=== PATIENT | male | born 1975 | race Caucasian/White ===

== ENCOUNTER 2017-06-07 15:52 | Emergency (ER) | payer MEDICAID ==
[2017-06-07] MEDS ORDERED: LORazepam 1 MG TAB PO ONE (16:08)
[2017-06-07] MEDS ORDERED: LORazepam 2 MG/ML INJ IM ONE (16:12)
[2017-06-07] MEDS ORDERED: HALOPERIDOL LACT 5 MG/ML INJ IM ONE (16:13)
[2017-06-07] MEDS ORDERED: OLANZapine DISINTEGR 10 MG TAB ONE (16:14)
--- NOTE | 2017-06-07 16:14 | EDPHY ---
General - History Smoking Status: Current some day smoker Narrative: 0641AM: No acute overnight. Patient was sling. Needs mental evaluation. Was positive for methamphetamine. Underlying schizophrenia. (Trenton Rico) I assumed care of the patient at 0700. The patient remained stable throughout my shift. He was seen by Mental Health who currently is evaluating possible placement options. The patient will be turned over to Dr. Harris at shift change. (Antoine Fan) CHIEF COMPLAINT: M1 hold HISTORY OF PRESENT ILLNESS: Patient arrives by EMS with [place] [employer] as well. [place] [employer] reports that the patient was sitting in the middle of the road with his belongings with him when he flagged the police department down. PD reports that he was agitated, appeared to be hallucinating and admits to amphetamine use. He was exhibiting flight of ideas, pressured speech and incoherent speech at times. They elected to place him on an M1 hold due to what they are assuming are hallucinations. It did require an hour to get him in the ambulance and transferred to the hospital. He denies any complaints of any kind. PSYCHIATRIC DIAGNOSES: Schizophrenia per chart review PRIOR PSYCHIATRIC EVALUATIONS: Unknown M1/DETAINER: [place] [employer] at time of arrival REVIEW OF SYSTEMS: Ten systems reviewed and are negative unless otherwise noted in the HPI EXAMINATION General Appearance: Alert, no distress, unkempt Head: normocephalic, atraumatic Eyes: Pupils equal and round, no conjunctival pallor or injection. Dilated pupils ENT, Mouth: Mucous membranes moist Neck: Normal inspection, supple, non-tender Respiratory: No retractions or distress. Not cooperating auscultation Cardiovascular: Tachycardic rate. Will not cooperate with auscultation Gastrointestinal: Abdomen is nondistended Neurological: Ambulate without difficulty. Will answer my questions regarding person place or time. Skin: Grossly intact. Extremities: Nontender, no pedal edema Psychiatric: Pressured speech and flight of ideas. Unable to carry on a conversation without changing his direction. Denies suicidal ideation. Denies homicidal ideation DIFFERENTIAL DIAGNOSES: Including but not limited to paranoid schizophrenia, schizoaffective, methamphetamine use, polysubstance abuse, acute psychosis MDM: 4:05 p.m. Likely paranoid schizophrenia with methamphetamine use. The patient is difficult to examine as he will not cooperate fully. I have elected to order Ativan and Haldol in attempt to help calm him down. 4:20 p.m. Notified by RN that the patient took the Ativan ordered by mouth without difficulty. Thus far cooperative but we are keeping a close eye on him. Haldol IM canceled. 5:45 p.m. Patient's urine is positive for methamphetamine. Thus he will not be evaluated within the next 12 hr. He has thus far not cooperating with blood draws. Proceed with oral Zyprexa and attempt again. At this time I will check the patient out to Dr. Harris. He will assume care the patient. Please see his note for further details and disposition. SUPERVISION: Patient was independently examined, but I discussed the case with my secondary supervising physician Dr. Harris. ([place]) Discussion: Care was signed out to me at 6:00 p.m. by ELIJAH coronel. At 6:20 p.m. patient becomes very agitated. He is given 2 mg of Ativan IM as well as 10 mg of Haldol IM. He does not have IV access. He has already had Zyprexa when I review his medical record We are able to get an IV in the patient while he was in 4 point restraints. He was given 25 mg of Benadryl IV. At 6:45 p.m. the patient is now sleeping. Patient has remained stable. His care is transferred to Dr. Rico at 11:00 p.m. (Ortega Harris) 2:00 p.m. the patient has been evaluated by Mental Health. They have spoken with patient's mom and reviewed his medical records. The patient has been admitted several times for psychotic type features but always in the setting of substance abuse. He has always been discharged within a few days and his symptoms felt to be primarily due to substance abuse. The patient admits to having taking all of his pill bottle of Adderall prior to coming to the emergency department. He currently does not meet criteria for inpatient admission. They did offer to send him to a rehabilitation center however he declines and does not want to stop using Adderall. He is [facility] to be [facility] to [facility]. (Angelo Mckeon) - Objective Vital Signs: Initial Vital Signs Heart Rate 118 H 06/07/17 16:00 Respiratory Rate 20 06/07/17 16:00 Blood Pressure 155/90 H 06/07/17 16:00 O2 Sat (%) 98 06/07/17 16:00 O2 Delivery Mode Room Air O2 (L/minute) 2 Allergies/Adverse Reactions: No Known Allergies Allergy (Verified 06/07/17 16:07) Home Medications: Medication Instructions Recorded Adderall 10 mg Tablet 11/08/15 Clotrimazole 1% [Lotrimin 1%] 15 gm TP BID #15 gr 11/08/15 Clotrimazole 1% [Lotrimin 1%] 1 landon TP BID #30 cream 12/15/15 Ibuprofen [Motrin (*)] 800 mg PO Q6 #15 tab 12/15/15 Risperidone 1 mg PO HS #10 tablet 03/20/16 Laboratory Results: Laboratory Results 06/07/17 23:59 06/07/17 23:59 Medications Given: Nicotine Polacrilex (Nicorette) 2 mg B PRN PRN PRN Reason: Nicotine Withdrawal Stop: 12/04/17 16:47 Last Admin: 06/07/17 16:59 Dose: 2 mg Discontinued Medications Diphenhydramine HCl (Benadryl Injection) 25 mg IVP EDNOW ONE Stop: 06/07/17 18:37 Last Admin: 06/07/17 18:37 Dose: 25 mg Haloperidol Lactate (Haldol Injection) 5 mg IM EDNOW ONE Stop: 06/07/17 16:14 Last Admin: 06/07/17 18:08 Dose: Not Given Lorazepam (Ativan) 2 mg PO EDNOW ONE Stop: 06/07/17 16:09 Last Admin: 06/07/17 16:30 Dose: 2 mg Lorazepam (Ativan Injection) 2 mg IM EDNOW ONE Stop: 06/07/17 16:13 Last Admin: 06/07/17 18:08 Dose: Not Given Nicotine (Nicoderm Cq) 21 mg TD EDNOW ONE Stop: 06/07/17 16:48 Last Admin: 06/07/17 16:59 Dose: 21 mg Olanzapine (Zyprexa Zydis) 10 mg PO EDNOW ONE Stop: 06/07/17 16:31 Last Admin: 06/07/17 16:25 Dose: 10 mg Olanzapine (Olanzapine) 5 mg PO ONCE ONE Stop: 06/07/17 17:45 Last Admin: 06/07/17 18:04 Dose: Not Given Olanzapine (Zyprexa Zydis) 10 mg PO EDNOW ONE Stop: 06/07/17 17:48 Last Admin: 06/07/17 18:04 Dose: 10 mg Departure - Departure Disposition: Home, Routine, Self-Care Clinical Impression: Polysubstance abuse Condition: Fair Instructions: Polysubstance Abuse (ED) Referrals: NONE *PRIMARY CARE P,. [Primary Care Provider] - As per Instructions [facility],. [Clinic] - As per Instructions
[2017-06-07] MEDS ORDERED: OLANZapine DISINTEGR 10 MG TAB PO ONE ×2 (16:30→17:47)
[2017-06-07] MEDS ORDERED: NICOTINE POLACRILEX 2 MG GUM B ONE (16:46)
[2017-06-07] MEDS ORDERED: NICOTINE 21 MG/24 HR PATCH TD ONE ×2 (16:46→16:47)
[2017-06-07] MEDS ORDERED: NICOTINE POLACRILEX 2 MG GUM B PRN (16:48)
[2017-06-07] MEDS ORDERED: OLANZapine 5 MG TAB PO ONE (17:44)
[2017-06-07] MEDS ORDERED: LORazepam 2 MG/ML INJ ONE (18:13)
[2017-06-07] MEDS ORDERED: HALOPERIDOL LACT 5 MG/ML INJ ONE (18:20)
[2017-06-08 00:10] LABS: % IMMATURE GRANULYOCYTES 0.4 % (0.0-1.1); ABSOLUTE IMMATURE GRANULOCYTES 0.04 10^3/uL (0.00-0.10); ADD DIFF? NO; ADD MORPH? NO; ADD SCAN? NO; ATYPICAL LYMPHOCYTE FLAG 0 (0-99); FRAGMENT RBC FLAG 0 (0-99); HEMATOCRIT 35.6 % (40.0-51.0); HEMOGLOBIN 12.5 g/dL (13.7-17.5); LEFT SHIFT FLG 0 (0-99); LIPEMIA HEMOLYSIS FLAG 90 (0-99); MEAN CELL HEMOGLOBIN 31.3 pg (27.9-34.1); MEAN CELL HEMOGLOBIN CONCENTR. 35.1 g/dL (32.4-36.7); MEAN CELL VOLUME 89.2 fL (81.5-99.8); MEAN PLATELET VOLUME 10.4 fL (8.7-11.7); PLATELET CLUMPS FLAG 10 (0-99); PLATELET COUNT 168 10^3/uL (150-400); RED BLOOD CELL COUNT 3.99 10^6/uL (4.40-6.38); RED CELL DISTRIBUTION WIDTH 12.6 % (11.5-15.2)
[2017-06-08 00:25] LABS: ANION GAP 11 mEq/L (8-16); CALCIUM 8.6 mg/dL (8.5-10.4); CARBON DIOXIDE 24 mEq/l (22-31); CHLORIDE 109 mEq/L (97-110); CREATININE 0.7 mg/dL (0.7-1.3); ETHANOL SERUM < 10 mg/dL (0-10); GLOMERULAR FILTRATION RATE > 60; GLUCOSE 97 mg/dL (70-100); POTASSIUM 4.5 mEq/L (3.5-5.2); SALICYLATE < 1.0 mg/dL (2.0-20.0); SODIUM 144 mEq/L (134-144)
[2017-06-09 08:22] VITALS: TEMP 97.3
[2017-06-09 14:15] VITALS: BP 132/69; PULSE 79; RESP 18; O2SAT 96
--- NOTE | 2017-06-09 16:49 | ASMTCMCOM ---
CM Note CM Note Notes: Patient was evaluated by EPS and his M1 hold was lifted, their discharge plan is to cab him to the [facility] location in order to get set up with the local [facility] and other homeless resource options. This CM offered to assist RN with providing and explaining the CE information and calling the cab. This CM spoke with the patient and he says he agrees with discharge plan and understands the importance of completing CE; information provided. Cab called arranged. CM available for further assistance. Date Signed: 06/09/2017 04:49 PM Electronically Signed By:Malaika Bhakta RN
--- NOTE | 2017-06-09 16:52 | ASDISCHSUM ---
Discharge Information Plan Status:Homeless/Fdc Medically Cleared to Leave: Discharge Date:06/09/2017 02:39 PM CM D/C Disposition:[facility]re[facility] (Homeless) ADT D/C Disposition:Home, Routine, Self-Care Projected Discharge Date:06/09/2017 02:39 PM Transportation at D/C:Taxicab Discharge Delay Reason: Follow-Up Date:06/09/2017 02:39 PM Discharge Slot: Final Diagnosis: Placement Information Patient Contact Information Contact Name:JIM Relationship: Address: Home Phone: Work Phone: City: Alternate Phone: State/Zip Code: Email: Financial Information Financial Class: Primary Plan Desc:MEDICAID HEALTH FIRST OCULAR CARE TECHNICIAN Primary Plan Number:[id number] Secondary Plan Desc: Secondary Plan Number: Assessment Information [facility] CM Progress Note CM Note CM Note Notes: Patient was evaluated by EPS and his M1 hold was lifted, their discharge plan is to cab him to the [facility] location in order to get set up with the local intermediate and other homeless resource options. This CM offered to assist RN with providing and explaining the CE information and calling the cab. This CM spoke with the patient and he says he agrees with discharge plan and understands the importance of completing CE; information provided. Cab called arranged. CM available for further assistance. Date Signed: 06/09/2017 04:49 PM Electronically Signed By:Malaika Bhakta RN LACE LACE Acuity / Level of Care Answers: No. Emergency dept visits in Answers: 1 last 6 months Score: 1 Date Signed: 06/09/2017 04:49 PM Electronically Signed By:Malaika Bhakta RN Intervention Information Intervention Type:Cab Vouchers Date of Service:06/09/2017 04:49 PM Patient Type:Emergency Room Staff Member:INA hBakta Sharon Hours:0.25 Discipline:Stucco Plasterer Severity: Comment:Cab arranged and voucher provided by John CANTU/AMIE Intervention Type:Community Resources Date of Service:06/09/2017 04:49 PM Patient Type:Emergency Room Staff Member:INA Bhakta [place] Hours:0.25 Discipline:Stucco Plasterer Severity: Comment:Provided information on [facility] and other homeless resources.
== END 2017-06-09 14:39 | disposition home or self-care (01) ==
LOC: EDUNIT#
DX: F19.10 Other psychoactive substance abuse, uncomplicated (principal); F17.200 Nicotine dependence, unspecified, uncomplicated
CPT/HCPCS: 80305; 96374; G0480; J1200; J1630; J2060

== ENCOUNTER 2017-07-25 10:37 | Emergency (ER) | payer MEDICAID ==
[2017-07-25] MEDS ORDERED: NICOTINE 21 MG/24 HR PATCH TD ONE (10:55)
[2017-07-25] MEDS ORDERED: NICOTINE POLACRILEX 2 MG GUM B PRN (10:55)
--- NOTE | 2017-07-25 11:07 | EDPHY ---
H & P Stated Complaint: Brought to emergency department on M1 psychiatric hold Source: Patient Exam Limitations: No limitations - Personal History Current Tetanus Diphtheria and Acellular Pertussis (TDAP): Yes Tetanus Vaccine Date: < 10 years - Medical/Surgical History Hx Asthma: No Hx Chronic Respiratory Disease: No Hx Diabetes: No Hx Cardiac Disease: No Hx Renal Disease: No Hx Cirrhosis: No Hx Alcoholism: No Hx HIV/AIDS: No Hx Splenectomy or Spleen Trauma: No Other PMH: PMH: ADHD, depression, bipolar, schizoaffective d/o. PSH: - Social History Smoking Status: Current some day smoker Time Seen by Provider: 07/25/17 11:06 HPI/ROS: CHIEF COMPLAINT: Agitated, brought in on M1 psychiatric hold HISTORY OF PRESENT ILLNESS: The patient presents the emergency department after he was placed on an M1 psychiatric hold at the crisis Center. The patient has a history of schizophrenia. He reportedly was lying in the street with his possessions which prompted police to pick him up. He has a history of this type of behavior. The patient reports that he is only using Adderall sporadically. He denies taking additional psychiatric medication and specifically refuses antipsychotics. The patient was seen in the emergency department in May with a very identical presentation. After prolonged period of observation he was discharged to the street. The patient denies any suicidal or homicidal ideation. He does report chronic visual hallucinations. The patient denies any ingestion. REVIEW OF SYSTEMS: A comprehensive 10 point review of systems is otherwise negative aside from elements mentioned in the history of present illness. (Antoine Fan) - Physical Exam Exam: General Appearance: Alert, no distress Eyes: Pupils equal and round no pallor or injection ENT, Mouth: Mucous membranes moist Respiratory: There are no retractions, lungs are clear to auscultation Cardiovascular: Regular rate and rhythm Gastrointestinal: Abdomen is soft and nontender, no masses, bowel sounds normal Neurological: A&O, normal motor function, normal sensory exam, normal cranial nerves Skin: Warm and dry, no rashes Musculoskeletal: Neck is supple nontender Extremities: symmetrical, full range of motion Psychiatric: Alert and oriented x3, grandiose, endorses visual hallucinations (Antoine Fan) Constitutional: Initial Vital Signs Temperature (C) 36.6 C 07/25/17 10:49 Heart Rate 64 07/25/17 10:49 Respiratory Rate 16 07/25/17 10:49 Blood Pressure 128/60 H 07/25/17 10:49 O2 Sat (%) 98 07/25/17 10:49 O2 Delivery Mode Room Air Allergies/Adverse Reactions: No Known Allergies Allergy (Verified 06/07/17 16:07) Home Medications: Medication Instructions Recorded Adderall 10 mg Tablet 11/08/15 Clotrimazole 1% [Lotrimin 1%] 15 gm TP BID #15 gr 11/08/15 Clotrimazole 1% [Lotrimin 1%] 1 landon TP BID #30 cream 12/15/15 Ibuprofen [Motrin (*)] 800 mg PO Q6 #15 tab 12/15/15 Risperidone 1 mg PO HS #10 tablet 03/20/16 Medical Decision Making ED Course/Re-evaluation: The patient arrives to the emergency department on an M1 psychiatric hold. The patient was offered Zyprexa and declined. Screening laboratory studies have been sent. The patient has been medically cleared for psychiatric evaluation. 3:00 p.m.: Patient will be turned over to Dr. Dina Choudhary pending psychiatric evaluation and disposition. (Antoine Fan) 1500: Patient is signed out to me at change of shift. The patient is stable. Psychiatric Services evaluated the patient. They felt the patient should be placed. The patient was informed of the plan. 1805: I again discussed the plan with the patient. I answered all his questions. 2300: The patient is signed out to Dr. Moss at change of shift. (Dina Choudhary) Differential Diagnosis: Differential diagnosis considered includes schizophrenia, psychosis, drug intoxication, withdrawal (Antoine Fan) - Data Points Laboratory Results: Laboratory Results 07/25/17 11:45 07/25/17 11:45 07/25/17 07/25/17 07/25/17 11:45 11:45 11:45 WBC 3.61 10^3/uL L 10^3/uL (3.80-9.50) RBC 4.52 10^6/uL 10^6/uL (4.40-6.38) Hgb 14.2 g/dL g/dL (13.7-17.5) Hct 40.9 % % (40.0-51.0) MCV 90.5 fL fL (81.5-99.8) MCH 31.4 pg pg (27.9-34.1) MCHC 34.7 g/dL g/dL (32.4-36.7) RDW 12.4 % % (11.5-15.2) Plt Count 242 10^3/uL 10^3/uL (150-400) MPV 9.6 fL fL (8.7-11.7) Neut % (Auto) 63.4 % % (39.3-74.2) Lymph % (Auto) 24.4 % % (15.0-45.0) [place] % (Auto) 9.1 % % (4.5-13.0) Eos % (Auto) 1.7 % % (0.6-7.6) Baso % (Auto) 1.1 % % (0.3-1.7) Nucleat RBC Rel Count 0.0 % % (0.0-0.2) Absolute Neuts (auto) 2.29 10^3/uL 10^3/uL (1.70-6.50) Absolute Lymphs (auto) 0.88 10^3/uL L 10^3/uL (1.00-3.00) Absolute Monos (auto) 0.33 10^3/uL 10^3/uL (0.30-0.80) Absolute Eos (auto) 0.06 10^3/uL 10^3/uL (0.03-0.40) Absolute Basos (auto) 0.04 10^3/uL 10^3/uL (0.02-0.10) Absolute Nucleated RBC 0.00 10^3/uL 10^3/uL (0-0.01) Immature Gran % 0.3 % % (0.0-1.1) Immature Gran # 0.01 10^3/uL 10^3/uL (0.00-0.10) Sodium 143 mEq/L mEq/L (135-145) Potassium 4.6 mEq/L mEq/L (3.5-5.2) Chloride 105 mEq/L mEq/L (97-110) Carbon Dioxide 28 mEq/l mEq/l (22-31) Anion Gap 10 mEq/L mEq/L (8-16) BUN 14 mg/dL mg/dL (7-23) Creatinine 0.8 mg/dL mg/dL (0.7-1.3) Estimated GFR > 60 Glucose 105 mg/dL H mg/dL (70-100) Calcium 9.3 mg/dL mg/dL (8.5-10.4) Urine Opiates Screen NEGATIVE (NEGATIVE) Urine Barbiturates NEGATIVE (NEGATIVE) Ur Phencyclidine Scrn NEGATIVE (NEGATIVE) Ur Amphetamine Screen NEGATIVE (NEGATIVE) U Benzodiazepines Scrn NEGATIVE (NEGATIVE) Urine Cocaine Screen NEGATIVE (NEGATIVE) U Marijuana (THC) Screen NON-NEGATIVE H (NEGATIVE) Ethyl Alcohol < 10 mg/dL mg/dL (0-10) Medications Given: Nicotine Polacrilex (Nicorette) 6 mg B PRN PRN PRN Reason: Nicotine Withdrawal Stop: 01/21/18 10:54 Last Admin: 07/25/17 11:26 Dose: 6 mg Discontinued Medications Nicotine (Nicoderm Cq) 21 mg TD EDNOW ONE Stop: 07/25/17 10:56 Last Admin: 07/25/17 12:31 Dose: 21 mg Departure - Departure Disposition: Other Psych, Not [place] Clinical Impression: Acute psychosis, Hallucinations Condition: Good Referrals: Patient,NotPresent [Unknown] - As per Instructions
[2017-07-25 11:49] LABS: PLATELET COUNT 242 10^3/uL (150-400)
[2017-07-25 16:39] VITALS: O2SAT 95
[2017-07-25 22:27] VITALS: BP 120/67; PULSE 85; RESP 16; TEMP 98.2
== END 2017-07-25 22:40 ==
LOC: EDUNIT#
DX: F23 Brief psychotic disorder (principal); F17.200 Nicotine dependence, unspecified, uncomplicated
CPT/HCPCS: 80305; G0480

== ENCOUNTER 2017-08-15 18:44 | Emergency (ER) | payer MEDICAID ==
[2017-08-15] MEDS ORDERED: LORazepam 2 MG/ML INJ ONE (18:47)
--- NOTE | 2017-08-15 18:50 | EDPHY ---
HPI/HX/ROS/PE/MDM <Rusty Mc - Last Filed: 08/15/17 20:29> <Dina Choudhary Yaritza - Last Filed: 08/15/17 22:46> - Data Points Imaging: I viewed and interpreted images myself <Trenton Rico - Last Filed: 08/16/17 05:21> Narrative: CHIEF COMPLAINT: Methamphetamine use HPI: This patient is a 41 y/o male with history of psychosis arriving via EMS with police escort for evaluation after methamphetamine use. Per police report, the patient called 911 himself after experiencing auditory and visual hallucinations. On EMS arrival, the patient was combative and arrives in restraints. 5mg IM Versed administered in transport. The patient was placed on oxygen by nasal cannula as he was so talkative and agitated that his oxygen saturation became too low. He was tachycardic as well. The patient admits to methamphetamine use today. He has disorganized thoughts and repeatedly talks about drug use, a "cold war", and a "[employer] building", among other statements , and requests that we call his mother. HPI primarily obtained from police and machine hostler at bedside. Further HPI unobtainable due to patient presentation. REVIEW OF SYSTEMS: Aside from elements discussed in the HPI, a comprehensive 10-point review of systems was reviewed and is negative. PMH: ADHD, Depression, Bipolar, Schizoaffective disorder SOCIAL HISTORY: Homeless. Lives in [place]. PHYSICAL EXAM: General:Patient is awake, agitated, yelling. Head: Atraumatic, normocephalic ENT:Eyes are normal to inspection. ENT inspection normal. Neck: Normal inspection. Full range of motion. Respiratory:No respiratory distress. No stridor. Skin: Normal color. No rash. Warm and dry. Extremities: Normal appearance. Full range of motion. Neuro: Normal motor function. Normal sensory function. Psychiatric: Disorganized. (Rusty Mc) 2100: The patient is signed out to me at change of shift by Dr. Mc. I reviewed the case with Dr. Mc. I reviewed the patient's laboratory studies. [place] [id number]. Patient is receiving normal saline. 2245: Patient was stable during his stay. He was signed out to Dr. Rico at change of shift. (Dina Choudhary) ED Course: 18:42 [facility] at bedside. Multiple police officers and firefighters at bedside. Patient was combative in transport and is currently in restraints. Plan to administer 10mg IM Haldol and 2mg IM Ativan. (Rusty Mc) 0520: Patient ambulated well throughout the emergency room. P.o. Challenge well he has no complaints. He is sober. Answers my questions appropriately. Does not want hurt himself or anybody else. He is requesting go to a homeless [facility] today. He is positive for methamphetamine the setting of underlying mental illness. However he does not appear gravely disabled he does not want hurt himself or anybody else. He is not on M1 hold. He came in acutely psychotic after doing methamphetamine. Explain he should refrain from doing methamphetamine. He feels comfortable being discharged. Questions been answered. (Trenton Rico) - Data Points Laboratory Results: Laboratory Results 08/16/17 04:00 08/16/17 04:00 08/16/17 08/16/17 08/16/17 04:00 04:00 03:16 WBC 11.59 10^3/uL H D 10^3/uL (3.80-9.50) RBC 4.05 10^6/uL L 10^6/uL (4.40-6.38) Hgb 12.5 g/dL L g/dL (13.7-17.5) Hct 37.0 % L % (40.0-51.0) MCV 91.4 fL fL (81.5-99.8) MCH 30.9 pg pg (27.9-34.1) MCHC 33.8 g/dL g/dL (32.4-36.7) RDW 13.0 % % (11.5-15.2) Plt Count 167 10^3/uL 10^3/uL (150-400) MPV 10.3 fL fL (8.7-11.7) Neut % (Auto) 81.5 % H % (39.3-74.2) Lymph % (Auto) 9.7 % L % (15.0-45.0) [place] % (Auto) 7.4 % % (4.5-13.0) Eos % (Auto) 0.8 % % (0.6-7.6) Baso % (Auto) 0.3 % % (0.3-1.7) Nucleat RBC Rel Count 0.0 % % (0.0-0.2) Absolute Neuts (auto) 9.44 10^3/uL H 10^3/uL (1.70-6.50) Absolute Lymphs (auto) 1.12 10^3/uL 10^3/uL (1.00-3.00) Absolute Monos (auto) 0.86 10^3/uL H 10^3/uL (0.30-0.80) Absolute Eos (auto) 0.09 10^3/uL 10^3/uL (0.03-0.40) Absolute Basos (auto) 0.04 10^3/uL 10^3/uL (0.02-0.10) Absolute Nucleated RBC 0.00 10^3/uL 10^3/uL (0-0.01) Immature Gran % 0.3 % % (0.0-1.1) Immature Gran # 0.04 10^3/uL 10^3/uL (0.00-0.10) Sodium 140 mEq/L mEq/L (135-145) Potassium 4.2 mEq/L mEq/L (3.5-5.2) Chloride 105 mEq/L mEq/L (97-110) Carbon Dioxide 25 mEq/l mEq/l (22-31) Anion Gap 10 mEq/L mEq/L (8-16) BUN 25 mg/dL H mg/dL (7-23) Creatinine 0.7 mg/dL mg/dL (0.7-1.3) Estimated GFR > 60 Glucose 92 mg/dL mg/dL (70-100) Calcium 8.3 mg/dL L mg/dL (8.5-10.4) Urine Opiates Screen NEGATIVE (NEGATIVE) Urine Barbiturates NEGATIVE (NEGATIVE) Ur Phencyclidine Scrn NEGATIVE (NEGATIVE) Ur Amphetamine Screen NON-NEGATIVE H (NEGATIVE) U Benzodiazepines Scrn NEGATIVE (NEGATIVE) Urine Cocaine Screen NEGATIVE (NEGATIVE) U Marijuana (THC) Screen NEGATIVE (NEGATIVE) 08/15/17 08/15/17 20:16 20:16 WBC 19.64 10^3/uL H 10^3/uL (3.80-9.50) RBC 4.47 10^6/uL 10^6/uL (4.40-6.38) Hgb 13.7 g/dL g/dL (13.7-17.5) Hct 39.9 % L % (40.0-51.0) MCV 89.3 fL fL (81.5-99.8) MCH 30.6 pg pg (27.9-34.1) MCHC 34.3 g/dL g/dL (32.4-36.7) RDW 12.9 % % (11.5-15.2) Plt Count 196 10^3/uL 10^3/uL (150-400) MPV 10.1 fL fL (8.7-11.7) Neut % (Auto) 92.1 % H % (39.3-74.2) Lymph % (Auto) 2.7 % L % (15.0-45.0) [place] % (Auto) 4.5 % % (4.5-13.0) Eos % (Auto) 0.0 % L % (0.6-7.6) Baso % (Auto) 0.3 % % (0.3-1.7) Nucleat RBC Rel Count 0.0 % % (0.0-0.2) Absolute Neuts (auto) 18.09 10^3/uL H 10^3/uL (1.70-6.50) Absolute Lymphs (auto) 0.53 10^3/uL L 10^3/uL (1.00-3.00) Absolute Monos (auto) 0.88 10^3/uL H 10^3/uL (0.30-0.80) Absolute Eos (auto) 0.00 10^3/uL L 10^3/uL (0.03-0.40) Absolute Basos (auto) 0.06 10^3/uL 10^3/uL (0.02-0.10) Absolute Nucleated RBC 0.00 10^3/uL 10^3/uL (0-0.01) Immature Gran % 0.4 % % (0.0-1.1) Immature Gran # 0.08 10^3/uL 10^3/uL (0.00-0.10) Sodium 142 mEq/L mEq/L (135-145) Potassium 4.3 mEq/L mEq/L (3.5-5.2) Chloride 104 mEq/L mEq/L (97-110) Carbon Dioxide 21 mEq/l L mEq/l (22-31) Anion Gap 17 mEq/L H mEq/L (8-16) BUN 29 mg/dL H mg/dL (7-23) Creatinine 1.0 mg/dL mg/dL (0.7-1.3) Estimated GFR > 60 Glucose 103 mg/dL H mg/dL (70-100) Calcium 9.7 mg/dL mg/dL (8.5-10.4) Urine Opiates Screen Urine Barbiturates Ur Phencyclidine Scrn Ur Amphetamine Screen U Benzodiazepines Scrn Urine Cocaine Screen U Marijuana (THC) Screen Medications Given: Discontinued Medications Haloperidol Lactate (Haldol Injection) 10 mg IM EDNOW ONE Stop: 08/15/17 18:53 Last Admin: 08/15/17 19:00 Dose: 10 mg Sodium Chloride (Ns) 1,000 mls @ 0 mls/hr IV EDNOW ONE; Wide Open PRN Reason: Protocol Stop: 08/15/17 21:03 Last Admin: 08/15/17 21:30 Dose: 1,000 mls Sodium Chloride (Ns) 1,000 mls @ 0 mls/hr IV ONCE ONE PRN Reason: Wide Open Stop: 08/16/17 02:41 Last Admin: 08/16/17 02:46 Dose: 1,000 mls Lorazepam (Ativan Injection) 2 mg IM EDNOW ONE Stop: 08/15/17 18:53 Last Admin: 08/15/17 19:00 Dose: 2 mg General <Rusty Mc M - Last Filed: 08/15/17 20:29> <Dina Choudhary S - Last Filed: 08/15/17 22:46> <Trenton Rico - Last Filed: 08/16/17 05:21> Initial Vital Signs: Initial Vital Signs Temperature (C) 36.6 C 08/15/17 19:00 Heart Rate 111 H 08/15/17 19:00 Respiratory Rate 20 08/15/17 19:00 Blood Pressure 149/88 H 08/15/17 19:00 O2 Sat (%) 94 08/15/17 19:00 O2 Delivery Mode Room Air O2 (L/minute) 2 Allergies/Adverse Reactions: No Known Allergies Allergy (Verified 06/07/17 16:07) Home Medications: Medication Instructions Recorded Adderall 10 mg Tablet 11/08/15 Clotrimazole 1% [Lotrimin 1%] 15 gm TP BID #15 gr 11/08/15 Clotrimazole 1% [Lotrimin 1%] 1 landon TP BID #30 cream 12/15/15 Ibuprofen [Motrin (*)] 800 mg PO Q6 #15 tab 12/15/15 Risperidone 1 mg PO HS #10 tablet 03/20/16 Departure <Rusty Mc - Last Filed: 08/15/17 20:29> <Dina Choudhary - Last Filed: 08/15/17 22:46> <Trenton Rico - Last Filed: 08/16/17 05:21> - Departure Disposition: Home, Routine, Self-Care Clinical Impression: Methamphetamine abuse Condition: Good Instructions: Methamphetamine Abuse (ED) Referrals: Patient,NotPresent [Primary Care Provider] - As per Instructions Report Scribed for: Rusty Mc Report Scribed by: Cyn Jackson Date of Report: 08/15/17 Time of Report: 18:53 Physician Review and Approval Statement: Portions of this note were transcribed by an ED scribe. I personally performed the history, physical exam, and medical decision making; and confirm the accuracy of the information in the transcribed note. <Rusty Mc - Last Filed: 08/15/17 20:29>
[2017-08-15] MEDS ORDERED: HALOPERIDOL LACT 5 MG/ML INJ IM ONE (18:52)
[2017-08-15] MEDS ORDERED: LORazepam 2 MG/ML INJ IM ONE (18:52)
[2017-08-15 20:22] LABS: PLATELET COUNT 196 10^3/uL (150-400)
[2017-08-15] MEDS ORDERED: NS 1,000 ML IV ONE (21:02)
[2017-08-16] MEDS ORDERED: NS 1,000 ML IV ONE (02:40)
[2017-08-16 04:07] LABS: PLATELET COUNT 167 10^3/uL (150-400)
[2017-08-16 06:22] VITALS: BP 135/78; PULSE 70; RESP 20; TEMP 97.7; O2SAT 96
== END 2017-08-16 07:23 | disposition home or self-care (01) ==
LOC: EDUNIT#
DX: F15.10 Other stimulant abuse, uncomplicated (principal); E86.9 Volume depletion, unspecified
CPT/HCPCS: 80305; J2060

== ENCOUNTER 2017-09-02 12:00 | Inpatient (IN) | payer MEDICAID ==
[2017-09-02] MEDS ORDERED: LORazepam 2 MG/ML INJ ONE (12:02)
[2017-09-02] MEDS ORDERED: HALOPERIDOL LACT 5 MG/ML INJ ONE (12:02)
[2017-09-02] MEDS ORDERED: LORazepam 2 MG/ML INJ IVP ONE (12:11)
[2017-09-02] MEDS ORDERED: HALOPERIDOL LACT 5 MG/ML INJ IVP ONE (12:11)
--- NOTE | 2017-09-02 12:22 | CPEKG ---
Heart Rate: 97 RR Interval: 619 P-R Interval: 160 QRSD Interval: 102 QT Interval: 376 QTC Interval: 478 P [place]tha: 76 QRS [place]tha: 83 T Wave [place]: 58 EKG Severity - ABNORMAL ECG - EKG Impression: SINUS RHYTHM EKG Impression: BIATRIAL ABNORMALITIES EKG Impression: LEFT VENTRICULAR HYPERTROPHY EKG Impression: ST ELEV, PROBABLE NORMAL EARLY REPOL PATTERN EKG Impression: BORDERLINE PROLONGED QT INTERVAL Electronically Signed By: Antoine Fan 02-Sep-2017 14:40:45
[2017-09-02 12:29] LABS: PLATELET COUNT 241 10^3/uL (150-400)
--- NOTE | 2017-09-02 12:46 | EDPHY ---
H & P Stated Complaint: M1 Time Seen by Provider: 09/02/17 12:38 HPI/ROS: CHIEF COMPLAINT: Agitation, running in traffic, history of methamphetamine abuse and schizophrenia HISTORY OF PRESENT ILLNESS: The patient is well known to the emergency department is brought in by police with agitation and reported history of using methamphetamine. He was running in traffic. The patient arrives diaphoretic, combative and is unable to provide any history. Shortly after arrival while in the psychiatric [facility] the patient was witnessed to have a respiratory arrest. He became cyanotic pale and did not have a palpable pulse. REVIEW OF SYSTEMS: A comprehensive 10 point review is unobtainable secondary to his altered mental status Source: Police, Old records Exam Limitations: Physical impairment - Personal History Current Tetanus/Diphtheria Vaccine: Unsure Current Tetanus Diphtheria and Acellular Pertussis (TDAP): Unsure Tetanus Vaccine Date: < 10 years - Medical/Surgical History Hx Asthma: No Hx Chronic Respiratory Disease: No Hx Diabetes: No Hx Cardiac Disease: No Hx Renal Disease: No Hx Cirrhosis: No Hx Alcoholism: Yes Hx HIV/AIDS: No Hx Splenectomy or Spleen Trauma: No Other PMH: PMH: ADHD, depression, bipolar, schizoaffective d/o. PSH: - Social History Smoking Status: Current some day smoker - Physical Exam Exam: General Appearance: Initially agitated however became apneic shortly after arrival Eyes: Pupils equal and round no pallor or injection ENT, Mouth: Mucous membranes moist Respiratory: There are no retractions, lungs are clear to auscultation Cardiovascular: Regular rate and rhythm Gastrointestinal: Abdomen is soft and nontender, no masses, bowel sounds normal Neurological: Grossly was moving all 4 extremities Skin: Warm and dry, no rashes Musculoskeletal: Neck is supple nontender Extremities: symmetrical, full range of motion Psychiatric: Agitated, psychotic Constitutional: Initial Vital Signs Temperature (C) 38.1 C 09/02/17 12:00 Heart Rate 91 09/02/17 12:00 Respiratory Rate 20 09/02/17 12:00 Blood Pressure 146/90 H 09/02/17 12:00 O2 Sat (%) 95 09/02/17 12:00 O2 Delivery Mode Nasal Cannula O2 (L/minute) 2 Allergies/Adverse Reactions: No Known Allergies Allergy (Verified 06/07/17 16:07) Home Medications: Medication Instructions Recorded Adderall 10 mg Tablet 11/08/15 Clotrimazole 1% [Lotrimin 1%] 15 gm TP BID #15 gr 11/08/15 Clotrimazole 1% [Lotrimin 1%] 1 landon TP BID #30 cream 12/15/15 Ibuprofen [Motrin (*)] 800 mg PO Q6 #15 tab 12/15/15 Risperidone 1 mg PO HS #10 tablet 03/20/16 Medical Decision Making - Diagnostics EKG Interpretation: EKG: Complete interpretation has been separately recorded in the [facility] archive. Summary impression: Sinus rhythm, rate 97, nonspecific ST T wave changes noted Repeat EKG: Sinus rhythm, borderline QT prolongation, changes consistent with LVH noted, no arrhythmia. Imaging Results: Chest x-ray AP: Images reviewed by myself, negative for cardiomegaly or focal infiltrate. ED Course/Re-evaluation: The patient presents to the ED with acute psychosis from presumed amphetamine abuse. Shortly after arrival, prior to receiving any chemical restraints the patient developed a respiratory arrest the characterized by lack of pulse, apnea and cyanosis. The patient was transferred to the resuscitation room and prior to being placed on a computator developed return of spontaneous circulation. The patient then became quite agitated. He received Haldol and Ativan for chemical restraint. The patient's EKG demonstrated no evidence of an obvious arrhythmia. He does not have evidence of a myocardial infarction. The patient's chest x-ray demonstrates no obvious disease or cardiomegaly. The patient will require admission to the hospital for observation in the setting of his respiratory arrest. The patient is currently on an M1 psychiatric hold secondary to his abnormal behavior, schizoaffective disorder and reported drug abuse. The patient will be admitted to the intensive care unit. I discussed the case with Dr. Love who will admit the patient. The patient was noted to be hypernatremic. He received 2 L of normal saline. The patient's initial CPKs 1100. Differential Diagnosis: Differential diagnosis considered includes ventricular tachycardia, PEA arrest, hyperkalemia, respiratory arrest, rhabdomyolysis, aspiration Critical Care Time: Critical care time exclusive of procedures and exclusive of the PA's time was 32 minutes, performed by myself, Antoine Fan MD. The patient presents to the ED with acute agitation and subsequent respiratory arrest. The patient required immediate attention was moved into resuscitation room. The patient will require admission to the intensive care unit for close observation. Consultation was made with the ICU team and curbside consultation was made with Cardiology service. - Data Points Laboratory Results: Laboratory Results 09/02/17 12:10 09/02/17 12:10 09/02/17 09/02/17 09/02/17 12:10 12:10 12:10 WBC 22.78 10^3/uL H 10^3/uL (3.80-9.50) RBC 4.73 10^6/uL 10^6/uL (4.40-6.38) Hgb 14.6 g/dL g/dL (13.7-17.5) Hct 44.2 % % (40.0-51.0) MCV 93.4 fL fL (81.5-99.8) MCH 30.9 pg pg (27.9-34.1) MCHC 33.0 g/dL g/dL (32.4-36.7) RDW 12.5 % % (11.5-15.2) Plt Count 241 10^3/uL 10^3/uL (150-400) MPV 11.0 fL fL (8.7-11.7) Neut % (Auto) 77.0 % H % (39.3-74.2) Lymph % (Auto) 15.8 % % (15.0-45.0) [place] % (Auto) 6.5 % % (4.5-13.0) Eos % (Auto) 0.0 % L % (0.6-7.6) Baso % (Auto) 0.3 % % (0.3-1.7) Nucleat RBC Rel Count 0.0 % % (0.0-0.2) Absolute Neuts (auto) 17.53 10^3/uL H 10^3/uL (1.70-6.50) Absolute Lymphs (auto) 3.59 10^3/uL H 10^3/uL (1.00-3.00) Absolute Monos (auto) 1.48 10^3/uL H 10^3/uL (0.30-0.80) Absolute Eos (auto) 0.01 10^3/uL L 10^3/uL (0.03-0.40) Absolute Basos (auto) 0.07 10^3/uL 10^3/uL (0.02-0.10) Absolute Nucleated RBC 0.00 10^3/uL 10^3/uL (0-0.01) Immature Gran % 0.4 % % (0.0-1.1) Immature Gran # 0.10 10^3/uL 10^3/uL (0.00-0.10) Sodium 150 mEq/L H mEq/L (135-145) Potassium 4.4 mEq/L mEq/L (3.5-5.2) Chloride 105 mEq/L mEq/L (97-110) Carbon Dioxide 17 mEq/l L mEq/l (22-31) Anion Gap 28 mEq/L H mEq/L (8-16) BUN 15 mg/dL mg/dL (7-23) Creatinine 1.2 mg/dL mg/dL (0.7-1.3) Estimated GFR > 60 Glucose 125 mg/dL H mg/dL (70-100) Calcium 10.0 mg/dL mg/dL (8.5-10.4) Creatine Kinase 1151 IU/L H IU/L (0-224) CK-MB (CK-2) Fraction 31.20 ng/mL H ng/mL (0.00-3.19) CK-MB (CK-2) % 2.7 % % (0.0-4.0) Creatine Kinase Interp NEGATIVE (NEGATIVE) Troponin I < 0.012 ng/mL ng/mL (0.000-0.034) Medications Given: Dextrose (D5w) 1,000 mls @ 100 mls/hr IV CONT JOURDAN Stop: 03/01/18 13:14 Last Admin: 09/02/17 13:47 Dose: 1,000 mls Discontinued Medications Haloperidol Lactate (Haldol Injection) 10 mg IVP EDNOW ONE Stop: 09/02/17 12:12 Last Admin: 09/02/17 12:12 Dose: 10 mg Sodium Chloride (Ns) 1,000 mls @ 0 mls/hr IV EDNOW ONE; Wide Open PRN Reason: Protocol Stop: 09/02/17 12:54 Last Admin: 09/02/17 13:12 Dose: Not Given Sodium Chloride (Ns) 1,000 mls @ 0 mls/hr IV EDNOW ONE; Wide Open PRN Reason: Protocol Stop: 09/02/17 12:54 Last Admin: 09/02/17 13:13 Dose: Not Given Lorazepam (Ativan Injection) 2 mg IVP EDNOW ONE Stop: 09/02/17 12:12 Last Admin: 09/02/17 12:12 Dose: 2 mg Departure - Departure Disposition: [facility] Acute Clinical Impression: Polysubstance abuse, Schizoaffective disorder, Respiratory arrest, Hypernatremia Condition: Fair
[2017-09-02] MEDS ORDERED: NS 1,000 ML IV ONE ×2 (12:53)
[2017-09-02 13:11] LABS: CREATINE KINASE 1151 IU/L (0-224)
[2017-09-02] MEDS ORDERED: ACETAMINOPHEN 650 MG SUPP PR PRN (13:11)
[2017-09-02] MEDS ORDERED: ONDANSETRON 4 MG/2 ML VIAL IVP PRN (13:11)
[2017-09-02] MEDS ORDERED: risperiDONE 0.5 MG TAB PO PRN (13:14)
[2017-09-02] MEDS ORDERED: HALOPERIDOL LACT 5 MG/ML INJ IVP PRN (13:15)
[2017-09-02] MEDS ORDERED: D5W 1,000 ML IV SCH (13:15)
--- NOTE | 2017-09-02 14:29 | GHP ---
[f rep st] HISTORY AND PHYSICAL DATE OF ADMISSION: 09/02/2017 CHIEF COMPLAINT: Agitation, history of methamphetamine abuse. HISTORY OF PRESENT ILLNESS: The patient is a 41-year-old male with a history of schizoaffective and possible bipolar disorder as well as history of IV methamphetamine abuse who was brought to the emergency department by police after he was found in an agitated state running through traffic. Upon arrival to the ED, he was placed on an M1 hold. Soon after arriving to his psych room, he was witnessed to have a respiratory arrest. He was reportedly agitated and in handcuffs at the time. He was being physically restrained when he suddenly became cyanotic and his nurse was unable to find a palpable pulse. A code blue was called. He was transferred to the ED trauma [place], but prior to getting him on the stringer up soldering machine he had return of spontaneous circulation. It is estimated he spent 30-60 seconds apneic and pulseless. He then abruptly woke up and became severely agitated, requiring pharmacologic restraints in the form of 10 mg of IV Haldol and 2 mg of IV Ativan. He is currently somnolent and snoring during my exam with stable vital signs. Initial EKG shows possible ST elevation in his anterior leads, which may be a repolarization abnormality. Repeat EKG is currently pending. Initial troponin is negative. Urine drug screen is pending. The patient is admitted to the intensive care unit for further management. PAST MEDICAL HISTORY: 1. History of schizophrenia versus schizoaffective disorder. 2. History of IV drug abuse with prior urine drug screen positive for methamphetamine and marijuana. 3. Possible bipolar disorder. 4. History of depression. 5. Possible history of attention deficit hyperactivity disorder. FAMILY HISTORY: Unobtainable. SOCIAL HISTORY: Unobtainable. Per chart review, he has a tobacco history and as above, history of IV drug abuse. His current living situation is unknown. REVIEW OF SYSTEMS: Unobtainable. PHYSICAL EXAMINATION: VITAL SIGNS: Temperature is 38.1, blood pressure 146/90 , heart rate 91, respiratory rate 20. He is 95% on 2 L by nasal cannula. GENERAL: The patient is sedated and somnolent, arouses to sternal rub. HEENT: Head is atraumatic, normocephalic. He has dried blood around his mouth, possibly from his nose. Pupils are equal, round, and reactive to light. Mucous membranes are dry. NECK: Supple. There is no JVD. HEART: Regular rate and rhythm without murmur. LUNGS: Clear to auscultation bilaterally. ABDOMEN: Soft, nondistended, nontender with normoactive bowel sounds. EXTREMITIES: Distal bilateral upper extremities are reddened and swollen, possibly from struggling to get out of tight physical restraints in place. These were slightly loosened. NEUROLOGIC: Patient is sedated but arouses to painful stimuli. Moves all 4 extremities. He is protecting his airway. LABORATORY DATA: CBC reveals a white blood cell count of 22.8, 77% neutrophils. Basic metabolic panel shows a sodium of 150, potassium 4.4, CO2 of 17, anion gap 28, glucose is 125. Troponin is negative. CK is 1151. CK-MB fraction is 31.2. Urine drug screen is pending. EKG in the emergency department after his arrest shows normal sinus rhythm with ST elevation in V2 and V3, slightly prolonged QT interval with a QTc of 478. Chest x-ray performed in the emergency department shows no acute cardiopulmonary abnormalities. Specifically, there is no evidence of pneumothorax, infiltrate, or pleural effusion. His heart size appears normal. ASSESSMENT AND PLAN: The patient is a 41-year-old male with history of intravenous drug abuse who presents to the emergency department in an agitated state and proceeded to suffer a respiratory arrest with return of spontaneous circulation. # Cardiac arrest: This may have been a primary respiratory event versus a coronary event. It is possible he had vasospasm from intravenous drug abuse. Also consider cardiac arrhythmia. Unfortunately, he was not monitored at the time of the event. He had return of spontaneous circulation within 30-60 seconds. Now with stable vital signs. Initial troponin is negative, CK-MG elevated. We will repeat troponin in 4 hours. Initial EKG with anterior ST elevation vs repolarization abnormality. Repeat EKG is pending. STAT echo ordered to evaluate for wall motion abnormality. Seems unlikely he suffered acute coronary plaque rupture, though again he may have had a myocardial infarction in the setting of coronary vasospasm and intravenous drug use. He will be admitted to ICU on cardiac telemetry. Case discussed with Dr. Sandoval. # Acute agitation. I suspect this is drug induced. Drug screen is pending. He is currently sedated after receiving 10 mg of IV Haldol and 2 mg of IV Ativan. He is on an M1 hold and will be monitored in the ICU. He will require behavioral health assessment once medically cleared. PRN Haldol ordered. # Hypernatremia. He has a free water deficit of 4 L. We will start D5W at 100 an hour to replace half this in the next 24 hours and follow his sodium levels, with a repeat basic metabolic panel this evening. # Anion gap metabolic acidosis. His presenting CO2 is 17. This may be consistent with volume depletion or starvation ketosis. Also consider seizure, given the dried blood around his mouth, though I do not see any obvious oral mucosal injury. IV fluids as above. We will place him on seizure precautions. PRN Ativan for any seizure activity. # Leukocytosis. I suspect this is a stress response. There are no localizing infectious symptoms. His chest x-ray is clear. We will hydrate and recheck this in the morning. # Prolonged QT interval. He will be monitored on telemetry and avoid QT prolonging agents. # History of IV drug abuse. Urine drug screen is pending. I suspect drug intoxication likely contributed to his presentation. Case Management and Behavioral Health will be involved to provide resource counseling. # Code status. Patient is full code. # DVT prophylaxis. Patient is low risk. We will place SCDs for now. # Disposition: Patient is admitted to inpatient status. I anticipate greater than 48 hours hospitalization for stabilization of his acute issues as described above. /[id number]/MODL MTDD
[2017-09-02] MEDS ORDERED: LORazepam 2 MG/ML INJ IVP PRN ×2 (15:18→15:27)
--- NOTE | 2017-09-02 15:38 | CPEKG ---
Heart Rate: 78 RR Interval: 769 P-R Interval: 156 QRSD Interval: 104 QT Interval: 428 QTC Interval: 488 P [place]: 77 QRS [place]: 86 T Wave [place]: 68 EKG Severity - BORDERLINE ECG - EKG Impression: SINUS RHYTHM EKG Impression: PROBABLE LEFT ATRIAL ABNORMALITY EKG Impression: BORDERLINE PROLONGED QT INTERVAL Electronically Signed By: Kuldip Armstrong 03-Sep-2017 11:50:20
--- NOTE | 2017-09-02 16:01 | PDMN ---
Medical Necessity Medical necessity: est los>2mn for respiratory/ cardiac arrest, drug induced agitation , hypernatremia, anion gap metabolic acidosis, leukocytosis, and prolonged QT interval; admit to ICU, M1 hold; comorbid schizophrenia, IV meth use, ADHD, ? bipolar; per order and HP 09/02/17
--- NOTE | 2017-09-02 16:15 | CPEKG ---
Heart Rate: 87 RR Interval: 690 P-R Interval: 152 QRSD Interval: 98 QT Interval: 404 QTC Interval: 486 P [place]: 70 QRS [place]: 74 T Wave [place]: 54 EKG Severity - ABNORMAL ECG - EKG Impression: SINUS RHYTHM EKG Impression: ANTOINETTE, CONSIDER BIATRIAL ABNORMALITIES EKG Impression: LEFT VENTRICULAR HYPERTROPHY EKG Impression: BORDERLINE PROLONGED QT INTERVAL Electronically Signed By: Lb Meza 03-Sep-2017 09:22:36
--- NOTE | 2017-09-02 16:33 | ECHO ---
[email or web address] [address] [address] Main: [phone] Fax: Transthoracic Echocardiogram Name: DONNA RODRIGUEZ MR#: [id number] Study Date: 09/02/2017 Study Time: 02:40 PM Date of : 1975 Age: 41 year(s) Height: 185.4 cm (73 in.) Weight: 95.26 kg (210 lb.) BSA: 2.2 m2 Gender: Male Examination: Echo Indication: Respiratory Arrest, Methaphetamine abuse Image Quality: Contrast: Requested by: Yolanda Martínez BP: 138 mmHg/87 mmHg Heart Rate: Rhythm: Normal sinus rhythm Indication: Respiratory Arrest, Methaphetamine abuse Procedure Staff Communications Engineer: Jcarlos Amaro RD Reading Physician: Kuldip Sandoval MD Requesting Provider: Conclusions: Normal size left ventricle. No LV hypertrophy. Normal global systolic LV function. EF is 59 %. No regional wall motion abnormality. Normal size right ventricle. The left atrium is normal in size. The right atrium is normal in size. The mitral valve is normal in appearance and function. The aortic valve is normal in appearance and function. Mild tricuspid regurgitation is present. No tricuspid valve vegetation. Pulmonary valve not well visualized. No pericardial effusion. Measurements: Chambers Valvular Assessment AV/MV Valvular Assessment TV/PV Normal Normal Normal Name Value Range Name Value Range Name Value Range Ao Nilam (MM): 4.2 cm (2.2 cm-3.7 AV Vmax: 1.48 m/s (1 m/s-1.7 TR Vmax: 2.93 mm/s ( - ) cm) m/s) TR PGmax: 34 mmHg ( - ) IVSd (2D): 1.1 cm (0.6 cm-1.1 AV maxP mmHg ( - ) syst. PAP: 39 mmHg ( - ) cm) LVOT Vmax: 1.09 m/s (0.7 m/s-1.1 PV Vmax: 1.29 m/s (0.6 m/s-0.9 LVDd (2D): 5.7 cm (4.2 cm-5.9 m/s) m/s) cm) MV E Vmax: 0.99 m/s ( - ) PV PGmax: 7 mmHg ( - ) LVDs (2D): 3.9 cm (2.1 cm-4 MV A Vmax: 0.77 m/s ( - ) cm) MV E/A: 1.29 ( - ) LVPWd (2D): 1.2 cm (0.6 cm-1 cm) LVEF (2D): 59 (>=54 %) Patient: DONNA RODRIGUEZ Study Date: 09/02/2017 Page 1 of 2 02:40 PM Continued Measurements: Chambers Valvular Assessment AV/MV Valvular Assessment TV/PV Name Value Name Value Name Value LADs: 3.6 cm MV E/E' Septal: 14.10 CVP (est.): 5 mmHg LADs Lon.0 cm MV E/E' Lateral: 13.70 LA Area: 17.5 cm2 Findings: Left Ventricle: Normal size left ventricle. No LV hypertrophy. Normal global systolic LV function. EF is 59 %. No regional wall motion abnormality. Normal diastolic LV function. Right Ventricle: Normal size right ventricle. Left Atrium: The left atrium is normal in size. Right Atrium: The right atrium is normal in size. Mitral Valve: The mitral valve is normal in appearance and function. Aortic Valve: The aortic valve is normal in appearance and function. Tricuspid Valve: The tricuspid valve appears normal. Mild tricuspid regurgitation is present. No tricuspid valve vegetation. Pulmonic Valve: Pulmonary valve not well visualized. Aorta: The aorta is normal. Pericardium: No pericardial effusion. (No Signature Object) Patient: DONNA RODRIGUEZ Study Date: 09/02/2017 Page 2 of 2 02:40 PM [id number]
[2017-09-02] MEDS ORDERED: DEXMEDETOMIDINE HCL 400 MCG in NS 100 ML IV SCH (17:00)
[2017-09-02] MEDS: D5W 1/2 NS 1,000 ML IV SCH ×2 (17:40→23:56)
--- NOTE | 2017-09-03 04:31 | GCON ---
[f rep st] CONSULTATION PULMONARY/CRITICAL CARE CONSULTATION DATE OF CONSULTATION: 09/02/2017 REASON FOR CONSULTATION: Drug overdose. HISTORY: The patient is a 41-year-old, who apparently took methamphetamine today. He was found runn ing chasing cars in traffic. He was brought in by the police and was severely agitated and combative in the emergency department. He was diaphoretic and unable to provide any history. He was apparent ly spitting blood at attendants in the emergency department. He was placed in restraints. He had a brief respiratory arrest associated with his struggles, and apparently lost pulses briefly. CPR was initiated, but was not needed longer than for a few compressions. He was given a large dose of Haldo l after he had good pulse and blood pressure and again became agitated. He was also given Ativan. E KG remained stable. He was admitted to the intensive care unit and has been somnolent since. PAST MEDICAL HISTORY: Unobtainable at this time. According to the chart, there is a history of poss ible schizophrenia, IV drug abuse, possibly bipolar depression, and possibly ADHD. FAMILY HISTORY: Unobtainable. SOCIAL HISTORY: Unobtainable. Tobacco in the past. IV drug abuse, marijuana, alcohol unknown. REVIEW OF SYSTEMS: Unobtainable. PHYSICAL EXAMINATION: GENERAL: Reveals a somewhat thin gentleman, who is unresponsive secondary to sedation. VITAL SIGNS: Blood pressure is 137/85, heart rate 84 with sinus rhythm on the monitor. O n 2 L of oxygen, saturations are 96%. HEENT: Shows small equal pupils. There is a small amount of blood around the nose, upper lip, and mouth without any active bleeding. Mucous membranes are dry. NECK: There is no jugular venous distention. CHEST: Clear bilaterally. No rales or consolidation are noted. HEART: Regular in rate and rhythm without significant murmur or gallop. ABDOMEN: Soft. Bowel sounds are present, but diminished. There is no obvious tenderness. EXTREMITIES: There is no edema; no cords. The extremities are without significant lesions. SKIN: Without rash. NEUROLOG IC: Remarkable for somnolence. Obviously, he is moving all extremities, was combative, etc., in the emergency department. DATABASE: Chest x-ray on admission was unremarkable. There were no infiltrates. White blood cell c ount is 22,000, hematocrit 44, platelets 241,000. Basic metabolic panel is remarkable for a sodium o f 150, CO2 of 17 with an anion gap of 28. BUN is 15 with creatinine 1.2, glucose 125. Total CPK is 1151. Troponins are negative. Urine tox screen is positive for amphetamines and THC. ASSESSMENT: 1. Drug overdose. Amphetamines involved. He was significantly delirious, agitated, and combative o n transport into the hospital and in the emergency department. He has received Haldol and Ativan and is currently quite sedated. Agitation may again become an issue. Ativan, Haldol, and Precedex if n eeded have been ordered. 2. M1 hold secondary to #1. 3. Hypernatremia. Sodium is 150. Intravenous fluids will be given and sodium rechecked. 4. Delirium secondary to #1. Restraints and sedative drugs will be used as needed to control his de lirium/agitation/combativeness as needed. We need to try to keep him safe, as well as the nursing pe saran and others caring for him. PLAN AND RECOMMENDATIONS: The patient will be kept in the intensive care unit on an M1 hold. Haldol , Ativan, and Precedex if needed will be used for increasing agitation and delirium. Intravenous flu ids will be continued. Laboratory will be followed. Further plans and recommendations will be made based on his progress over the next 12-24 hours. Furt her history will be obtained once he wakes up and is cooperative. /[id number]/MODL
[2017-09-03 05:57] LABS: PLATELET COUNT 138 10^3/uL (150-400)
[2017-09-03] MEDS: D5W 1/2 NS 1,000 ML IV SCH (06:03)
--- NOTE | 2017-09-03 09:59 | ASMTCASEMG ---
Living Arrangements What is your living Answers: Alone arrangement? Who do you live with? Type Of Residence What kind of residence do Answers: Homeless you live in? Discharge Plan Comments Coordination Status Comments Notes: Patient is a 41yo single male with a hx of schizoaffective and possible Bipolar Disorder, who was found in an agitated state running through traffic. Patient also has a hx of IV methamphetamine abuse and tested positive for amphetamines. Patient was placed on an M1 hold and brought to the ER. Patient was witnessed to have a respiratory arrest while in the ER, with spontaneous return of circulation. He was admitted for cardiac arrest, acute agitation, hypernatremia,, anion gap acidosis, leukocytosis and hx of drug abuse. Patient is homeless and well known to the hospital. No therapies have been ordered.Patient will likely need a psych evaluation by P since he is Medicaid. D/C plan TBD. CM will follow. Date Signed: 09/03/2017 09:58 AM Electronically Signed By:Elly Guzmán LCSW
[2017-09-03] MEDS ORDERED: POTASSIUM CL 20 MEQ TAB PO ONE (13:50)
[2017-09-03] MEDS ORDERED: ASPIRIN 325 MG TAB PO PRN (13:51)
--- NOTE | 2017-09-03 13:55 | HOSPPROG ---
Hospitalist Progress Note Assessment/Plan: * cardiac arrest?/respiratory * brief d/t methamphetamine * hypokalemia * replete * recheck tomorrow *amphetamine use * not suicidal * dc m1 hold *dispo * probably home tomorrow Subjective: no new complaints. feeling pretty tired Objective: Vital Signs Temp Pulse Resp BP Pulse Ox 36.7 C 60 12 114/71 94 09/03/17 12:00 09/03/17 12:00 09/03/17 12:00 09/03/17 12:00 09/03/17 12:00 Laboratory Results 09/03/17 05:40 09/03/17 08:35 09/02/17 09/03/17 09/04/17 05:59 05:59 05:59 Intake Total 3607.3 Output Total 950 Balance 2657.3 - Physical Exam Constitutional: no apparent distress, appears nourished, not in pain Eyes: anicteric sclera, EOMI Ears, Nose, Mouth, Throat: moist mucous membranes, hearing normal Cardiovascular: regular rate and rhythym, no murmur, rub, or gallop Respiratory: no respiratory distress Gastrointestinal: normoactive bowel sounds, soft, non-tender abdomen, no palpable masses Skin: warm Neurologic: AAOx3 Psychiatric: interacting appropriately, not anxious, not encephalopathic, thought process linear ICD10 Worksheet Patient Problems: Problems Problem Status Onset Hypernatremia Acute Polysubstance abuse Acute Respiratory arrest Acute Schizoaffective disorder Acute
[2017-09-03] MEDS ORDERED: ACETAMINOPHEN 325 MG TAB PO PRN (22:53)
[2017-09-04 08:13] VITALS: RESP 16
[2017-09-04 13:29] VITALS: BP 99/76; PULSE 71; TEMP 97.3; O2SAT 98
--- NOTE | 2017-09-04 14:34 | ASMTLACE ---
LACE Length of stay for Answers: 2 days current admission Acuity / Level of Answers: Yes Care: Did the patient have an inpatient admission? # of Emergency department Answers: 3-4 visits in the last 6 months Social determinants Answers: History of substance abuse (ETOH, street drugs, prescription drugs, etc.) Homelessness (street, retirement) Mental health diagnosis (anxiety, depression, pers onality disorders, etc.) Lack of community resources and/or lack of social support (no pcp, lives alone, transportation, alvin d) Score: 21 Date Signed: 09/04/2017 02:34 PM Electronically Signed By:Gloria Monahan LCSW
--- NOTE | 2017-09-04 14:34 | GDS ---
[f rep st] DISCHARGE SUMMARY DISCHARGE DIAGNOSES: 1. Methamphetamine intoxication with brief respiratory arrest during very agitated moment in the [facility]. 2. History of schizophrenia versus schizoaffective disorder. 3. History of positive IV drug use. 4. History of bipolar. HISTORY: This is a 41-year-old male who was brought to the emergency department by the police after he was found agitated and running through traffic. In the emergency department, he was very agitated and in handcuffs and was being physically restrained when he became cyanotic. Code blue was called, but he had spontaneous return of circulation. HOSPITAL COURSE: The patient was admitted and was monitored in the ICU. There were no arrhythmias n oted. He did get medications for his agitation. This improved and, by the time of discharge, he was alert and oriented. He denies any suicidal ideation or homicidal ideation. He is being discharged home. His M1 hold was lifted. /[id number]/MODL
--- NOTE | 2017-09-04 14:36 | ASMTCMCOM ---
CM Note CM Note Notes: Pt ready for DC today. Spoke with pt who stated if he cannot stay with friends tonight, he knows which [facility]. Pt given clothes and a bus pass. Date Signed: 09/04/2017 02:36 PM Electronically Signed By:Gloria Monahan LCSW
== END 2017-09-04 14:18 | disposition home or self-care (01) | DRG 896 ==
LOC: EEVIPCON 12:37 → OBSVTOIN 13:11 → F2N 14:55 → F1N 09-03 17:46
PROVIDERS: ADMIT Hospitalist; ATTEND Internal Medicine
DX: F15.121 Other stimulant abuse with intoxication delirium (principal); R09.2 Respiratory arrest; F12.90 Cannabis use, unspecified, uncomplicated; E87.0 Hyperosmolality and hypernatremia; E87.6 Hypokalemia; E87.2 Acidosis; F17.210 Nicotine dependence, cigarettes, uncomplicated; F25.0 Schizoaffective disorder, bipolar type
CPT/HCPCS: 80307; 96374; G0480; J1630; J2060

== ENCOUNTER 2017-09-05 10:29 | Emergency (ER) | payer MEDICAID ==
[2017-09-05 10:35] VITALS: RESP 16
--- NOTE | 2017-09-05 11:20 | EDPHY ---
H & P Smoking Status: Current some day smoker Time Seen by Provider: 09/05/17 11:13 HPI/ROS: CHIEF COMPLAINT: "I think my IV site is infected" HISTORY OF PRESENT ILLNESS: 41-year-old male history of homelessness, IV drug use, discharged from the hospital yesterday for acute psychosis with brief episode of apnea with placement of IV in the right antecubital fossa, walked to the ER complaining of erythema to the right antecubital fossa. He states that this is from hospital placement of IV not out of hospital recreational IV drug use. No fever no chills. No lymphangitic streaking. No chest pain. No dyspnea. No fever or chills. No flu-like symptoms REVIEW OF SYSTEMS: A ten point review of systems was performed and is negative with the exception of the items mentioned in the HPI PAST MEDICAL & SURGICAL HISTORY: No pertinent medical or surgical history SOCIAL HISTORY: History of IV methamphetamine use. Homelessness. PHYSICAL EXAM (Prior to examination, patient consented to physical exam, hands were washed and my usual and customary physical exam procedures followed) 1) GENERAL: Sleeping, easily woken, smiling, appears to be in no acute distress. 2) HEAD: Normocephalic, atraumatic 3) HEENT: Pupils equal, round, reactive to light bilaterally. Sclera anicteric. 4) NECK: Full range of motion, no meningeal signs. 5) LUNGS: Clear auscultation bilaterally, no wheezes, no rhonchi, no retractions. 6) HEART: Regular rate and rhythm, no murmur, no heave, no gallop. 7) ABDOMEN: No guarding, no rebound, no focal tenderness 8) MUSCULOSKELETAL: Right antecubital fossa: Erythema along the vasculature extending from the puncture wound 3 cm proximally. There is no crepitus. No induration. No lymphangitic streaking. No axillary or epitrochlear adenopathy or tenderness. 9) BACK: No visual or palpable abnormality. 10) SKIN: No rash, no petechiae. 11) Psychiatric: Patient is oriented X 3, there is no agitation. DIFFERENTIAL DIAGNOSIS: In no particular order including but limited to cellulitis, abscess, necrotizing fasciitis, superficial phlebitis, DVT (Tony,D Beverly) Constitutional: Initial Vital Signs Temperature (C) 36.9 C 09/05/17 10:31 Heart Rate 80 09/05/17 10:31 Respiratory Rate 16 09/05/17 10:31 Blood Pressure 139/77 H 09/05/17 10:31 O2 Sat (%) 93 09/05/17 10:31 O2 Delivery Mode Room Air Allergies/Adverse Reactions: No Known Allergies Allergy (Verified 06/07/17 16:07) Home Medications: Medication Instructions Recorded Aspirin [Aspirin 325 mg (*)] 325 mg PO DAILY PRN 09/03/17 MDM/Departure - [facility] Imaging Results: Images reviewed myself (Liseth Jimenez) ED Course/Re-evaluation: 11:20 a.m.: Reviewed old medical records including recent hospitalization. He currently appears well. Doubt necrotizing fasciitis. Will obtain ultrasound of the right upper extremity to evaluate for possible abscess and/or DVT. Care of patient under supervision of secondary supervising physician Dr Barbara Cavazos with whom I discussed case. 1:26 p.m.: Re-evaluation, discussed his imaging showing thrombophlebitis. We discussed warm packs. Discussed the importance of avoiding IV drug use. He will be discharged with usual customary discharge precautions instructions. ( Liseth Jimenez) The patient was evaluated and managed by the Physician [employer]. My co- signature indicates that I have reviewed this chart and I agree with the findings and plan of care as documented. I am the secondary supervising physician. (Barbara Cavazos) - Depart Disposition: Home, Routine, Self-Care Clinical Impression: Thrombophlebitis of right arm Condition: Good Instructions: Superficial Thrombophlebitis (ED) Additional Instructions: Keep warm packs applied to the area 3-5 times per day. Stop using IV drugs. Referrals: [facility],. [Clinic] - 2-3 days, call for appt.
[2017-09-05 13:38] VITALS: BP 135/80; PULSE 57; TEMP 98.6; O2SAT 97
== END 2017-09-05 13:43 | disposition home or self-care (01) ==
DX: I80.8 Phlebitis and thrombophlebitis of other sites (principal); F17.200 Nicotine dependence, unspecified, uncomplicated; Z79.82 Long term (current) use of aspirin

== ENCOUNTER 2017-09-20 23:59 | Emergency (ER) | payer MEDICAID ==
[2017-09-21] MEDS ORDERED: OLANZapine 5 MG TAB PO ONE (00:01)
--- NOTE | 2017-09-21 00:03 | EDPHY ---
H & P Time Seen by Provider: 09/21/17 00:02 HPI/ROS: HPI CHIEF COMPLAINT: Methamphetamine abuse HISTORY OF PRESENT ILLNESS: This patient is a 41-year-old male, failure milieu to myself as well as the emergency room presents emergency room after doing methamphetamine. He is homeless. He has a history of bipolar disorder, attention deficit hyperactivity disorder, he arrives by EMS in 4 point restraints for somewhat agitated. Police at bedside. He admits to doing large amount of methamphetamine today. Denies suicidal ideation. Past Medical History: Bipolar disorder, attention deficit hyperactivity disorder, schizoaffective disorder, methamphetamine abuse, brief respiratory arrest in the emergency room Past Surgical History: Denies recent surgical history Social History: Endorses methamphetamine. Homeless Family History: Noncontributory ROS REVIEW OF SYSTEMS: A comprehensive 10 point review of systems is otherwise negative aside from elements mentioned in the history of present illness. Exam Constitutional somewhat agitated, triage nursing summary reviewed, vital signs reviewed, awake/alert. Eyes normal conjunctivae and sclera, EOMI, PERRLA. HENT normal inspection, atraumatic, moist mucus membranes, no epistaxis, neck supple/ no meningismus, no raccoon eyes. Respiratory clear to auscultation bilaterally, normal breath sounds, no respiratory distress, no wheezing. Cardiovascular rate normal, regular rhythm, no murmur, no edema, distal pulses normal. Gastrointestinal soft, non-tender, no rebound, no guarding, normal bowel sounds, no distension, no pulsatile mass. Genitourinary no CVA tenderness. Musculoskeletal no midline vertebral tenderness, full range of motion, no calf swelling, no tenderness of extremities, no meningismus, good pulses, neurovascularly intact. Skin pink, warm, & dry, no rash, skin atraumatic. Neurologic awake, alert and oriented x 3, AAOx3, moves all 4 extremities equally, motor intact, sensory intact, CN II-XII intact, normal cerebellar, normal vision, normal speech. Psychiatric agitated, appears high on meth Heme/Lymph/Immune no lymphadenopathy. Differential Diagnosis: Includes but is not limited to in a particular order methamphetamine abuse, acute agitation, mood disorder, bipolar disorder Medical Decision Making: Plan for this patient oral Zyprexa 10 mg. Re- evaluate. If continues to be super aggressive or agitated he may require more medications. Re-evaluation: 1250: Patient still agitated after 10 mg p.o. Zyprexa. Will establish an IV check basic blood work, urine drug screen has been ordered, will give him a mg IV Ativan to see if this comes in down. And then re-evaluate. 0418: Patient required multiple doses of medication including Zyprexa, Ativan to control his agitation. He is now doing much better and he is calm and cooperative. He is lying in bed resting comfortably. He denies wanting to hurt himself or anybody else. 0436AM: Patient's urinalysis back does not show any drugs however patient still adamant that he did methamphetamine earlier. Patient relaxing resting comfortably answers my questions appropriately. Will plan on discharge early this morning. 0530: Patient resting comfortably no acute distress he is eager to be discharged. He is calm and cooperative answers my questions appropriately does not appear acutely psychotic her gravely disable. He denies wanting to hurt himself or anybody else. Ready for discharge. Source: Patient, Police, EMS - Personal History Tetanus Vaccine Date: < 10 years - Medical/Surgical History Hx Asthma: No Hx Chronic Respiratory Disease: No Hx Diabetes: No Hx Cardiac Disease: No Hx Renal Disease: No Hx Cirrhosis: No Hx Alcoholism: Yes Hx HIV/AIDS: No Hx Splenectomy or Spleen Trauma: No Other PMH: PMH: ADHD, depression, bipolar, schizoaffective d/o. PSH: - Social History Smoking Status: Current some day smoker Constitutional: Initial Vital Signs Temperature (C) 37.3 C 09/21/17 00:00 Heart Rate 114 H 09/21/17 00:00 Respiratory Rate 22 H 09/21/17 00:00 Blood Pressure 174/114 H 09/21/17 00:00 O2 Sat (%) 98 09/21/17 00:00 O2 Delivery Mode Room Air Allergies/Adverse Reactions: No Known Allergies Allergy (Verified 09/21/17 00:47) Home Medications: Medication Instructions Recorded Aspirin [Aspirin 325 mg (*)] 325 mg PO DAILY PRN 09/03/17 Medical Decision Making - Data Points Laboratory Results: Laboratory Results 09/21/17 01:00 09/21/17 01:00 09/21/17 09/21/17 09/21/17 03:59 01:00 01:00 WBC 8.57 10^3/uL 10^3/uL (3.80-9.50) RBC 4.38 10^6/uL L 10^6/uL (4.40-6.38) Hgb 13.5 g/dL L g/dL (13.7-17.5) Hct 39.2 % L % (40.0-51.0) MCV 89.5 fL fL (81.5-99.8) MCH 30.8 pg pg (27.9-34.1) MCHC 34.4 g/dL g/dL (32.4-36.7) RDW 13.1 % % (11.5-15.2) Plt Count 237 10^3/uL 10^3/uL (150-400) MPV 10.3 fL fL (8.7-11.7) Neut % (Auto) 83.8 % H % (39.3-74.2) Lymph % (Auto) 8.8 % L % (15.0-45.0) [place] % (Auto) 6.4 % % (4.5-13.0) Eos % (Auto) 0.1 % L % (0.6-7.6) Baso % (Auto) 0.5 % % (0.3-1.7) Nucleat RBC Rel Count 0.0 % % (0.0-0.2) Absolute Neuts (auto) 7.19 10^3/uL H 10^3/uL (1.70-6.50) Absolute Lymphs (auto) 0.75 10^3/uL L 10^3/uL (1.00-3.00) Absolute Monos (auto) 0.55 10^3/uL 10^3/uL (0.30-0.80) Absolute Eos (auto) 0.01 10^3/uL L 10^3/uL (0.03-0.40) Absolute Basos (auto) 0.04 10^3/uL 10^3/uL (0.02-0.10) Absolute Nucleated RBC 0.00 10^3/uL 10^3/uL (0-0.01) Immature Gran % 0.4 % % (0.0-1.1) Immature Gran # 0.03 10^3/uL 10^3/uL (0.00-0.10) Sodium 146 mEq/L H mEq/L (135-145) Potassium 4.2 mEq/L mEq/L (3.5-5.2) Chloride 109 mEq/L mEq/L (97-110) Carbon Dioxide 24 mEq/l mEq/l (22-31) Anion Gap 13 mEq/L mEq/L (8-16) BUN 19 mg/dL mg/dL (7-23) Creatinine 0.8 mg/dL mg/dL (0.7-1.3) Estimated GFR > 60 Glucose 120 mg/dL H mg/dL (70-100) Calcium 9.8 mg/dL mg/dL (8.5-10.4) Creatine Kinase 247 IU/L H IU/L (0-224) CK-MB (CK-2) Fraction 5.14 ng/mL H ng/mL (0.00-3.19) CK-MB (CK-2) % 2.1 % % (0.0-4.0) Creatine Kinase Interp NEGATIVE (NEGATIVE) Urine Opiates Screen NEGATIVE (NEGATIVE) Urine Barbiturates NEGATIVE (NEGATIVE) Ur Phencyclidine Scrn NEGATIVE (NEGATIVE) Ur Amphetamine Screen NEGATIVE (NEGATIVE) U Benzodiazepines Scrn NEGATIVE (NEGATIVE) Urine Cocaine Screen NEGATIVE (NEGATIVE) U Marijuana (THC) Screen NEGATIVE (NEGATIVE) Ethyl Alcohol < 10 mg/dL mg/dL (0-10) Medications Given: Discontinued Medications Haloperidol Lactate (Haldol Injection) 10 mg IM EDNOW ONE Stop: 09/21/17 00:49 Last Admin: 09/21/17 04:42 Dose: Not Given Sodium Chloride (Ns) 1,000 mls @ 0 mls/hr IV ONCE ONE PRN Reason: Wide Open Stop: 09/21/17 01:36 Last Admin: 09/21/17 01:36 Dose: 1,000 mls Sodium Chloride (Ns) 1,000 mls @ 0 mls/hr IV ONCE ONE PRN Reason: Wide Open Stop: 09/21/17 01:52 Last Admin: 09/21/17 02:05 Dose: 1,000 mls Lorazepam (Ativan Injection) 1 mg IVP EDNOW ONE Stop: 09/21/17 00:51 Last Admin: 09/21/17 01:25 Dose: 1 mg Lorazepam (Ativan Injection) 1 mg IVP EDNOW ONE Stop: 09/21/17 00:51 Last Admin: 09/21/17 01:32 Dose: 1 mg Olanzapine (Zyprexa Zydis) 10 mg PO EDNOW ONE Stop: 09/21/17 00:29 Last Admin: 09/21/17 00:29 Dose: 10 mg Olanzapine (Zyprexa Zydis) 10 mg PO EDNOW ONE Stop: 09/21/17 02:49 Last Admin: 09/21/17 03:30 Dose: 10 mg Departure - Departure Disposition: Home, Routine, Self-Care Clinical Impression: Methamphetamine abuse Condition: Good Instructions: Methamphetamine Abuse (ED) Referrals: NONE *PRIMARY CARE P,. [Primary Care Provider] - As per Instructions
[2017-09-21] MEDS ORDERED: OLANZapine DISINTEGR 10 MG TAB PO ONE ×2 (00:28→02:48)
[2017-09-21 00:47] VITALS: TEMP 99.1
[2017-09-21] MEDS ORDERED: HALOPERIDOL LACT 5 MG/ML INJ IM ONE (00:48)
[2017-09-21] MEDS ORDERED: LORazepam 2 MG/ML INJ IVP ONE ×2 (00:50)
[2017-09-21 01:15] LABS: PLATELET COUNT 237 10^3/uL (150-400)
[2017-09-21] MEDS ORDERED: NS 1,000 ML IV ONE ×2 (01:35→01:51)
[2017-09-21 01:50] VITALS: RESP 18; O2SAT 96
[2017-09-21 02:02] LABS: CREATINE KINASE 247 IU/L (0-224)
[2017-09-21] MEDS ORDERED: OLANZapine DISINTEGR 10 MG TAB ONE (02:50)
[2017-09-21 05:49] VITALS: BP 168/105; PULSE 102
== END 2017-09-21 05:47 | disposition home or self-care (01) ==
LOC: EDUNIT#
DX: F15.10 Other stimulant abuse, uncomplicated (principal); F17.200 Nicotine dependence, unspecified, uncomplicated; Z79.82 Long term (current) use of aspirin
CPT/HCPCS: 80305; 96374; G0480; J2060